=== PATIENT | female | born 1990 | race Caucasian/White ===

== ENCOUNTER 2020-08-01 10:58 | Outpatient (REF) | payer OTHER, SELFPAY ==
[2020-08-01 13:31] LABS: Thyroid Stimulating Hormone 1.54 uIU/mL (0.32-4.0)
[2020-08-01 15:17] LABS: CT PCR NOT DETECTED (Not Detect.); NG PCR NOT DETECTED (Not Detect.)
[2020-08-03 14:51] LABS: DHEA Sulfate 247 mcg/dL (18-391)
[2020-08-03 18:52] LABS: Follicle Stimulating Hormone 2.4 mIU/mL; Prolactin 11.5 ng/mL
[2020-08-05 12:31] LABS: Testosterone, Free 6.8 pg/mL (0.1-6.4); Testosterone, Total 41 ng/dL (2-45)
== END 2020-08-01 10:59 | disposition home or self-care (01) ==
LOC: HO.LAB 10:58
PROVIDERS: PCP Internal Medicine; Visit Provider Advanced Practice Midwife
DX: Z01.419 Encounter for gynecological examination (general) (routine) without abnormal findings (principal); Z11.3 Encounter for screening for infections with a predominantly sexual mode of transmission; N92.1 Excessive and frequent menstruation with irregular cycle; E66.9 Obesity, unspecified; R23.2 Flushing; Z20.2 Contact with and (suspected) exposure to infections with a predominantly sexual mode of transmission
CPT/HCPCS: 36415; 81025; 82627; 83001; 83498; 84146; 84402; 84403; 84443; 87491; 87591; 88142

== ENCOUNTER 2020-08-02 08:17 | Outpatient (REF) | payer OTHER, SELFPAY | END 2020-08-02 08:18 | disposition home or self-care (01) | LOC: HO.LAB 08:17 | PROVIDERS: Visit Provider Advanced Practice Midwife | DX: Z13.89 Encounter for screening for other disorder (principal) ==

== ENCOUNTER → 2020-08-10 16:20 | Outpatient (BNVA) | payer OTHER, SELFPAY | PROVIDERS: PCP Internal Medicine; Visit Provider Advanced Practice Midwife ==

== ENCOUNTER 2020-08-30 15:58 | Outpatient (REF) | payer OTHER, SELFPAY ==
--- NOTE | ~2020-08-30 | US_ITS ---
EXAMINATION: PELVIC ULTRASOUND CLINICAL INFORMATION: Irregular menstruation COMPARISON: None TECHNIQUE: Transabdominal and transvaginal pelvic ultrasound was performed. Transvaginal exam was performed for better visualization of the uterus and ovaries. FINDINGS: The uterus is in variable position and measures 7.5 x 4.1 x 4.5 cm in dimension. No focal uterine lesion is seen. Endometrial thickness is normal measuring 0.7 cm. There are nabothian cysts in the cervix. The ovaries are normal in size. The right ovary measures 3.2 x 1.9 x 2.5 cm. Left ovary measures 2.9 x 2.1 x 2.2 cm. There are multiple small peripheral cysts or follicles seen in both ovaries. There is no fluid in the pelvis. US/US pelvic and transvaginal IMPRESSION: Normal thickness endometrium. Normal size ovaries with multiple small peripheral cysts or follicles questionable polycystic ovarian syndrome.
== END 2020-08-30 15:59 | disposition home or self-care (01) ==
LOC: HO.US 15:58
PROVIDERS: Visit Provider Advanced Practice Midwife
DX: N92.6 Irregular menstruation, unspecified (principal)
CPT/HCPCS: 76830; 76856

== ENCOUNTER → 2020-09-06 15:33 | Outpatient (BNVA) | payer OTHER, SELFPAY | PROVIDERS: Visit Provider Advanced Practice Midwife ==

== ENCOUNTER → 2021-08-06 15:09 | Outpatient (BNVA) | payer OTHER, SELFPAY | PROVIDERS: Visit Provider Advanced Practice Midwife | DX: Z13.89 Encounter for screening for other disorder (principal) ==

== ENCOUNTER → 2022-08-11 14:59 | Outpatient (BNVA) | payer OTHER, SELFPAY | PROVIDERS: Visit Provider Advanced Practice Midwife | DX: Z13.89 Encounter for screening for other disorder (principal) ==